=== PATIENT | male | born 1995 | race Caucasian/White ===

== ENCOUNTER 2018-04-02 12:21 | Inpatient (IN) | payer BC, OTHER ==
[~2018-04-02] VITALS: Ht 182.9 cm; Wt 54.4 kg
[2018-04-02 12:26] VITALS: BP_SYST 125
[2018-04-02] MEDS ORDERED: KETOROLAC TROMETHAMINE 60 MG/2 ML VIAL IM ONE (13:15)
[2018-04-02 13:18] LABS: BASOPHILS % (AUTO) 0.7 % (0.0-2.0); EOSINOPHILS # (AUTO) 0.1 K/uL (0.0-0.4); EOSINOPHILS % (AUTO) 1.2 % (0.0-4.0); HEMOGLOBIN 15.5 g/dL (14.0-18.0); LYMPHOCYTES # (AUTO) 2.6 K/uL (1.0-5.5); LYMPHOCYTES % (AUTO) 42.5 % (20.5-51.5); MEAN CORPUSCULAR HEMOGLOBIN 30 pg (27-31); MEAN CORPUSCULAR HGB CONC 33 % (32-36); MEAN CORPUSCULAR VOLUME 92 fL (79.0-98.0); MONOCYTES # (AUTO) 0.5 K/uL (0.0-1.0); MONOCYTES % (AUTO) 7.6 % (1.7-9.3); PLATELET COUNT (AUTO) 197 K/uL (130-430); RED BLOOD CELL COUNT(AUTO) 5.11 MIL/uL (4.2-6.2); RED CELL DISTRIBUTION WIDTH 11.7 % (9.0-15.0); WHITE BLOOD COUNT (AUTO) 6.2 K/uL (4.8-10.8)
[2018-04-02 13:30] LABS: CREATININE 1.11 mg/dL (0.55-1.30); POTASSIUM 3.7 mmol/L (3.5-5.1)
[2018-04-02 13:35] LABS: ALBUMIN 4.2 g/dL (3.4-4.8); TOTAL BILIRUBIN 0.6 mg/dL (0.0-1.0)
[2018-04-02 13:36] LABS: INR 1.1 (0.80-1.20); PROTHROMBIN TIME 11.4 SECS (9.5-12.5)
[2018-04-02] MEDS ORDERED: BUSP5TAB3 PO (14:24)
[2018-04-02] MEDS ORDERED: WELSR150 PO (14:24)
[2018-04-02] MEDS ORDERED: ALPR0.5T96 PO (14:24)
[2018-04-02 15:57] VITALS: BP_SYST 124
[2018-04-02 16:00] VITALS: BP_SYST 124
[2018-04-02 20:00] VITALS: BP_SYST 124
[2018-04-02] MEDS: ALPRAZolam 0.25 MG TABLET PO SCH ×2 (20:00→20:29)
[2018-04-02] MEDS ORDERED: TEMAZEPAM 15 MG CAPSULE PO PRN (20:00)
[2018-04-02] MEDS: buPROPion HCL 150 MG TABLET.SA PO SCH (20:28)
[2018-04-02] MEDS: busPIRone HCL 5 MG TABLET PO SCH (20:29)
[2018-04-03 00:20] VITALS: BP_SYST 110
[2018-04-03 06:39] LABS: THYROID STIMULATING HORMONE 2.72 uIu/mL (0.34-4.82)
[2018-04-03] MEDS: ALPRAZolam 0.25 MG TABLET PO SCH (08:22)
[2018-04-03] MEDS: busPIRone HCL 5 MG TABLET PO SCH (08:22)
[2018-04-03 08:26] VITALS: BP_SYST 114
[2018-04-03] MEDS: buPROPion HCL 150 MG TABLET.SA PO SCH (08:29)
[2018-04-03 12:13] VITALS: BP_SYST 112
[2018-04-03 13:36] VITALS: BP_SYST 112
== END 2018-04-03 14:35 | disposition home or self-care (01) | DRG 200 ==
LOC: SED 12:21 → STU 14:38
PROVIDERS: ADMIT Internal Medicine; ATTEND Internal Medicine
DX: J93.83 Other pneumothorax (principal); Q87.40 Marfan syndrome, unspecified; F41.9 Anxiety disorder, unspecified; F32.9 Major depressive disorder, single episode, unspecified; Z84.89 Family history of other specified conditions; Z79.899 Other long term (current) drug therapy
CPT/HCPCS: 36415; 71045; 71046-TC; 71250-TC; 80053; 80061; 82550-TC; 83880; 84443-TC; 84484; 85025; 85610-TC; 93005; 93306; 96372; 99285; J1885